=== PATIENT | male | born 1980 | race Two or more races ===

== ENCOUNTER 2023-03-01 23:19 | Emergency (ER) | payer OTHER ==
[~2023-03-01] VITALS: Ht 170.2 cm; Wt 81.6 kg
[2023-03-02] MEDS ORDERED: MEDROLPACK PO (03:07)
[2023-03-02] MEDS ORDERED: BENADRYL25 MG PO (03:07)
== END 2023-03-02 03:09 | disposition home or self-care (01) ==
LOC: ER 23:19
DX: T78.1XXA Other adverse food reactions, not elsewhere classified, initial encounter (principal); X58.XXXA Exposure to other specified factors, initial encounter